=== PATIENT | female | born 1985 | race African-American/Black ===

== ENCOUNTER 2017-06-05 23:20 | Observation (INO) | payer OTHER ==
[~2017-06-05] VITALS: Ht 167.6 cm; Wt 113.4 kg
[2017-06-06] MEDS ORDERED: OCD MT (00:29)
[2017-06-06] MEDS ORDERED: PREN-88 PO (00:29)
[2017-06-06] MEDS ORDERED: LACTATED RINGERS 1,000 ML IV SCH (01:45)
[2017-06-06] MEDS ORDERED: ACETAMINOPHEN 500MG TABLET PO ONE (01:45)
== END 2017-06-06 02:30 | disposition home or self-care (01) ==
LOC: L&D 23:20
PROVIDERS: ADMIT Obstetrics & Gynecology; ATTEND Obstetrics & Gynecology
DX: O62.9 Abnormality of forces of labor, unspecified (principal); Z3A.37 37 weeks gestation of pregnancy
CPT/HCPCS: 96360; 99281; G0378; J7120; 96361

== ENCOUNTER 2017-06-21 04:02 | Inpatient (IN) | payer OTHER ==
[~2017-06-21] VITALS: Ht 167.6 cm; Wt 113.4 kg
[~2017-06-21 04:02] MED LIST: OCD MT; PREN-88 PO
[2017-06-21] MEDS ORDERED: NALOXONE HCL 0.4 MG/ML 1ML VIAL IM PRN (05:00)
[2017-06-21] MEDS ORDERED: MISOPROSTOL 100MCG TABLET VG NR (05:00)
[2017-06-21] MEDS ORDERED: CARBOPROST TROMETHAMINE 250 MCG/ML AMPUL IM PRN (05:00)
[2017-06-21] MEDS ORDERED: BUTORPHANOL TARTRATE 2 MG/ML VIAL IV PRN (05:00)
[2017-06-21] MEDS ORDERED: METHYLERGONOVINE MALEATE 0.2 MG/ML IM PRN ×2 (05:00→14:30)
[2017-06-21] MEDS ORDERED: LIDOCAINE HCL 1% 20ML VIAL (Pyxis) INJ INFIL NR (05:00)
[2017-06-21] MEDS: LACTATED RINGERS 1,000 ML IV SCH ×2 (06:14→09:49)
[2017-06-21] MEDS ORDERED: CLINDAMYCIN 900 MG in DEXTROSE 5% WATER 50 ML IV SCH (06:30)
[2017-06-21 07:13] LABS: BASOPHILS % 0.5 % (0.0-2.0); EOSINOPHILS % 0.3 % (0.0-5.0); HEMATOCRIT. 38.3 % (36.0-48.0); HEMOGLOBIN. 12.9 g/dL (12.0-16.0); LYMPHOCYTES % 25.8 % (20.0-50.0); MEAN CORPUSCULAR HEMOGLOBIN 29.8 pg (28.0-32.0); MEAN CORPUSCULAR VOLUME 88.6 fL (81.0-99.0); MEAN PLATELET VOLUME 8.2 fl (7.4-10.4); MONOCYTES % 7.3 % (2.0-8.0); NEUTROPHILS % 66.1 % (40.0-76.0); PLATELET 298 x1000/uL (130-400); RED BLOOD CELL COUNT 4.33 mill/uL (4.2-5.4); RED CELL DISTRIBUTION WIDTH 14.3 % (11.6-14.6)
[2017-06-21 07:26] LABS: INR 0.9; PARTIAL THROMBOPLASTIN TIME 31.3 sec (24.0-34.0); PROTHROMBIN TIME 9.8 sec
[2017-06-21 08:05] LABS: RUBELLA IGG 127.6 IU/mL (4.99-10)
[2017-06-21 08:06] LABS: HEPATITIS B SURFACE ANTIGEN NEGATIVE
[2017-06-21] MEDS ORDERED: BUPIVACAINE HCL/NS/PF EPIDURAL 100 ML EP ONE (09:49)
[2017-06-21] MEDS ORDERED: BUPIVACAINE HCL/PF 0.25% (2.5MG/ML) 10ML ONE (09:50)
[2017-06-21] MEDS ORDERED: FENTANYL CITRATE/PF 50MCG/ML 2ML VIAL ONE ×2 (09:50→09:55)
[2017-06-21] MEDS ORDERED: BUPIVACAINE HCL/NS/PF EPIDURAL 100 ML EP SCH (10:30)
[2017-06-21 11:34] LABS: CLARITY URINE CLEAR (CLEAR); COLOR URINE YELLOW (YELLOW); GLUCOSE URINE NEGATIVE (NEGATIVE); KETONES URINE NEGATIVE (NEGATIVE); LEUKOCYTE ESTERASE URINE NEGATIVE (NEGATIVE); NITRITE URINE NEGATIVE (NEGATIVE); OCCULT BLOOD URINE NEGATIVE (NEGATIVE); PROTEIN URINE NEGATIVE (NEGATIVE); SPECIFIC GRAVITY URINE 1.012 (1.005-1.030); UROBILINOGEN URINE 0.2 E.U./dL (0.2-1.0)
[2017-06-21 11:59] LABS: *AMPHETAMINES SCREEN URINE NEGATIVE (NEGATIVE); *BARBITURATES SCREEN URINE NEGATIVE (NEGATIVE); *BENZODIAZEPINES SCREEN URINE NEGATIVE (NEGATIVE); *COCAINE SCREEN URINE NEGATIVE (NEGATIVE); CANNABINOID URINE SCREEN NEGATIVE (NEGATIVE); METHADONE URINE SCREEN NEGATIVE (NEGATIVE); OPIATES URINE SCREEN NEGATIVE (NEGATIVE); PHENCYCLIDINE URINE SCREEN NEGATIVE (NEGATIVE)
[2017-06-21] MEDS: DEXT 5%/LR + PITOCIN 20UNITS/L 1,000 ML IV SCH ×2 (14:03→16:02)
[2017-06-21] MEDS ORDERED: DEXT 5%/LR + PITOCIN 20UNITS/L 1,000 ML IV SCH (14:28)
[2017-06-21] MEDS ORDERED: LANOLIN OINT 0.25 GM TUBE TOP PRN (14:30)
[2017-06-21] MEDS ORDERED: IBUPROFEN 400MG TABLET PO PRN (14:30)
[2017-06-21] MEDS ORDERED: IBUPROFEN 800MG TABLET PO PRN (14:30)
[2017-06-21] MEDS ORDERED: RHO(D) IMMUNE GLOBULIN 300 MCG/SYR IM PRN (14:30)
[2017-06-21 16:45] VITALS: BP 110/77
[2017-06-21 17:15] VITALS: BP 121/73
[2017-06-21 20:00] VITALS: BP 137/82
[2017-06-21] MEDS ORDERED: HYDROCODONE/ACETAMINOPHEN 5/325MG TABLET PO PRN (20:30)
[2017-06-21 20:40] VITALS: BP 138/85
[2017-06-22 00:30] VITALS: BP 113/64
[2017-06-22 07:01] LABS: BASOPHILS % 0.3 % (0.0-2.0); EOSINOPHILS % 0.4 % (0.0-5.0); MEAN CORPUSCULAR HEMOGLOBIN 29.9 pg (28.0-32.0); MEAN CORPUSCULAR VOLUME 89.5 fL (81.0-99.0); MEAN PLATELET VOLUME 7.9 fl (7.4-10.4); MONOCYTES % 6.7 % (2.0-8.0); NEUTROPHILS % 66.6 % (40.0-76.0); PLATELET 248 x1000/uL (130-400); RED BLOOD CELL COUNT 4.02 mill/uL (4.2-5.4); RED CELL DISTRIBUTION WIDTH 14.6 % (11.6-14.6)
[2017-06-22 08:00] VITALS: BP 126/60
[2017-06-22] MEDS: PRENATAL VIT/FE FUMARATE/FA TABLET PO SCH (10:04)
[2017-06-22 16:00] VITALS: BP 104/73
[2017-06-22 20:00] VITALS: BP 139/78
[2017-06-23 00:37] VITALS: BP 116/80
[2017-06-23 08:00] VITALS: BP 117/73
[2017-06-23] MEDS: PRENATAL VIT/FE FUMARATE/FA TABLET PO SCH (08:10)
== END 2017-06-23 13:30 | disposition home or self-care (01) | DRG 774 ==
LOC: OBSVTOIN 04:02 → L&D 04:02 → 7EST PP/OB 16:55
PROVIDERS: ADMIT Obstetrics & Gynecology; ATTEND Obstetrics & Gynecology
PROC: 3E033VJ Introduction of Other Hormone into Peripheral Vein, Percutaneous Approach (ICD-10-PCS; 2017-06-21)
PROC: 0W8NXZZ Division of Female Perineum, External Approach (ICD-10-PCS; 2017-06-21)
PROC: 10E0XZZ Delivery of Products of Conception, External Approach (ICD-10-PCS; principal; 2017-06-21 03:25)
DX: O98.82 Other maternal infectious and parasitic diseases complicating childbirth (principal); B95.1 Streptococcus, group B, as the cause of diseases classified elsewhere; O48.0 Post-term pregnancy; O69.81X0 Labor and delivery complicated by cord around neck, without compression, not applicable or unspecified; Z88.0 Allergy status to penicillin; Z37.0 Single live birth; Z88.6 Allergy status to analgesic agent; Z3A.40 40 weeks gestation of pregnancy
CPT/HCPCS: 36415; 80305; 81003; 85025; 85610; 85730; 86592; 86703; 86762; 86850; 86900; 87340; J2590; J3010; J3490; J7060; J7120; A4315